=== PATIENT | male | born 1980 ===

== ENCOUNTER 2020-03-25 11:25 | Emergency (ER) | payer OTHER ==
[~2020-03-25] VITALS: Ht 175.3 cm; Wt 90.7 kg
[2020-03-25] MEDS ORDERED: ZOCOR20 MG PO (11:51)
== END 2020-03-25 18:41 | disposition home or self-care (01) ==
LOC: ER 11:25
DX: K63.89 Other specified diseases of intestine (principal); R10.12 Left upper quadrant pain